=== PATIENT | female | born 1965 | race Caucasian/White ===

== ENCOUNTER 2019-08-05 06:35 | Day surgery (SDC) | payer BC ==
[2019-08-05] MEDS: Lactated Ringers 1,000 ML IV SCH (07:30)
[2019-08-05] MEDS ORDERED: Propofol 200 MG/20 ML SDV ONE ×2 (08:15→08:26)
[2019-08-05] MEDS ORDERED: fentaNYL 100 MCG/2 ML SDV ONE (08:16)
[2019-08-05 09:22] VITALS: BP 112/69; PULSE 65
--- NOTE | 2019-08-05 15:27 | OR ---
DATE OF SURGERY: 08/05/2019. REFERRING PROVIDER: Urvashi Seals PA-C. PRE-OPERATIVE DIAGNOSES: Positive family history of colon cancer in patient's father as well as paternal grandfather. The patient's last colonoscopy was 5 years ago. POST-OPERATIVE DIAGNOSES: 1. Minimal sigmoid diverticulosis. 2. Somewhat tortuous colon, but otherwise normal. 3. Normal distal ileum. PROCEDURE: Colonoscopy. SURGEON: Eugene Rose M.D. ANESTHESIA: Monitored anesthesia care. BOWEL PREP: Good. Faustina is a 53-year-old female who was brought to the endoscopy suite after discussing risks and benefits of the procedure. Informed consent was obtained for conscious sedation and colonoscopy with or without biopsy and/or polypectomy. We also discussed possibility of missed lesions. Pre-procedure exam was unremarkable. IV, oxygen, and monitors were placed. The patient was placed in the left lateral decubitus position. Sedation was administered and a digital rectal exam was performed which was unremarkable. Colonoscope was passed into the rectum and slowly advanced all the way to the cecum. Cecum was viewed and photographed. Ileocecal valve was intubated and distal ileum was normal in appearance. The colonoscope was slowly withdrawn and the mucosa was closed observed in a direct circumferential manner. The ascending colon was unremarkable. The transverse colon was unremarkable. The descending colon was unremarkable. The sigmoid colon did reveal some minimal diverticulosis. Retroflexion was performed and rectal mucosa was unremarkable. Scope was removed. The patient tolerated the procedure well. The patient was monitored until that baseline status. Discharge instructions were reviewed and the patient was discharged in good condition. COMPLICATIONS: None. TOTAL TIME: 18 minutes. ESTIMATED BLOOD LOSS: None. RECOMMENDATIONS/FOLLOW-UP: Would recommend repeat again in 5 years given the positive family history of colon cancer. I would like to kindly thank Urvashi Seals for this referral. DMB: 08/05/2019 09:09:26 MODL: 08/05/2019 15:15:12 /[id number]
== END 2019-08-05 09:45 | disposition home or self-care (01) ==
LOC: VM.SDS 06:35
PROVIDERS: ATTEND Family Medicine
DX: Z12.11 Encounter for screening for malignant neoplasm of colon (principal); K57.30 Diverticulosis of large intestine without perforation or abscess without bleeding; K63.89 Other specified diseases of intestine; K21.9 Gastro-esophageal reflux disease without esophagitis; F41.1 Generalized anxiety disorder; M79.7 Fibromyalgia; Z91.041 Radiographic dye allergy status; Z80.0 Family history of malignant neoplasm of digestive organs; Z79.899 Other long term (current) drug therapy
CPT/HCPCS: J2704; J3010; J7120

== ENCOUNTER 2020-11-27 08:17 | Emergency (ER) | payer BC ==
[2020-11-27] MEDS ORDERED: Sodium Chloride 0.9% 10 ML Syringe FLUSH PRN (08:47)
[2020-11-27] MEDS ORDERED: Sodium Chloride 0.9% 1,000 ML IV ONE (08:49)
[2020-11-27] MEDS ORDERED: Diltiazem 50 MG/10 ML SDV IVPUSH ONE (08:52)
--- NOTE | 2020-11-27 08:59 | EDM.PDOC ---
ED HPI GENERAL MEDICAL PROBLEM - General Stated Complaint: RACING HEART Time Seen by Provider: 11/27/20 08:30 Source of Information: Reports: Patient, Family History Limitations: Reports: No Limitations - History of Present Illness INITIAL COMMENTS - FREE TEXT/NARRATIVE: Pt. presents to ER with complaints of racing heart. Pt. states that the symptoms started at about 0200 this AM. She has had problems with palpitations in the past. She has had 2 Holter studies neither of which showed any supraventricular or ventricular tachycardia. She was evaluated by Dr. Miller at [facility] in 2016 but has not had any follow-up since then. He ordered one of the Holter studies at that time, again which was largely normal. She has never been on a beta block or other medication for rate control. Pt. denies any chest pain. No shortness of breath. No nausea, vomiting, or diarrhea. Denies any lightheadedness. She has not been feeling faint.She states that she has been a bit congested lately. Her only other complaint is that of fatigue today. Pt. has a history of polymyalgia rheumatica and was recently diagnosed with Neftali's disease. Onset: Today Location: Reports: Chest Associated Symptoms: Reports: Malaise. Denies: Confusion, Chest Pain, Cough, Diaphoresis, Fever/Chills, Headaches, Nausea/Vomiting, Rash, Seizure, Shortness of Breath, Syncope, Weakness - Related Data Allergies Allergy/AdvReac Type Severity Reaction Status Date / Time contrast Allergy Hives Uncoded 11/27/20 10:08 Home Meds: Home Meds Cyclobenzaprine [Flexeril] 10 mg PO Q6H PRN 03/31/14 [History] Omeprazole [Prilosec] 20 mg PO QAM 03/31/14 [History] traZODone 50 mg PO BEDTIME 03/31/14 [History] Cholecalciferol (Vitamin D3) [Vitamin D3] 1,000 units PO DAILY 11/04/14 [History] Cyanocobalamin (Vitamin B-12) [B-12] 1,000 mcg PO DAILY 07/15/15 [History] Diclofenac Sodium [Voltaren 1% Gel] 2 gram TOP QID 07/15/15 [History] Hydroxychloroquine Sulfate [Plaquenil] 200 mg PO BID 07/22/19 [History] Lysine 500 mg PO DAILY PRN 07/22/19 [History] [place]-3/DHA/Epa/Fish Oil [Fish Oil 1,000 mg Softgel] 1,000 mg PO BID 07/22/19 [History] PARoxetine [Paxil] 10 mg PO DAILY 07/22/19 [History] Turmeric Root Extract [Turmeric Curcumin] 500 mg PO DAILY 07/22/19 [History] cycloSPORINE [Restasis] 1 each OP BID 07/22/19 [History] estradioL [Estrace] 1 mg PO DAILY 07/22/19 [History] Diclofenac Sodium [Voltaren] 1 tab PO DAILY 08/05/19 [History] Past Medical History Gastrointestinal History: Reports: GERD Genitourinary History: Reports: Other (See Below) Other Genitourinary History: urachal anomaly Musculoskeletal History: Reports: Arthritis, Fibromyalgia Other Musculoskeletal History: polymyalgia rheumatica. posterior tibial tendon dysfunction or RLE. popliteal cyst. left lateral knee pain. hallux rigidus of right foot. chronic right ankle pain Neurological History: Reports: Other (See Below) Other Neuro History: numbness of feet. insomnia Psychiatric History: Reports: Anxiety, Depression - Past Surgical History Female Surgical History: Reports: Breast Biopsy, Hysterectomy, Tubal Ligation Musculoskeletal Surgical History: Reports: Arthroscopic Knee Other Musculoskeletal Surgeries/Procedures:: bilat. knee scopes, right knee surgery. ED ROS GENERAL - Review of Systems Review Of Systems: Comprehensive ROS is negative, except as noted in HPI. ED EXAM, GENERAL - Physical Exam Exam: See Below Exam Limited By: No Limitations General Appearance: Alert, WD/WN, No Apparent Distress Head: Atraumatic, Normocephalic Neck: Normal Inspection, Supple, Full Range of Motion Respiratory/Chest: No Respiratory Distress, Lungs Clear, Normal Breath Sounds, No Accessory Muscle Use, Chest Non-Tender Cardiovascular: Tachycardia, Other (Tachycardia, regular rhythm. No murmur.) GI/Abdominal: Non-Tender, No Distention Extremities: Normal Inspection, No Pedal Edema Neurological: Alert, Oriented, CN II-XII Intact, Normal Cognition, Normal Gait, Normal Reflexes, No Motor/Sensory Deficits Psychiatric: Normal Affect, Normal Mood #1 Interpretation EKG Date: 11/27/20 Rhythm: Other (superventricular tachycardia, rate of 130.) [place]: Normal P-Wave: Absent QRS: Normal ST-T: Normal QT: Normal #2 Interpretation Rhythm: NSR [place]: Normal P-Wave: Present QRS: Normal ST-T: Normal QT: Normal Course - Orders/Labs/Meds Orders: Active Orders 24 hr Category Date Time Status EKG Documentation Completion [RC] STAT Care 11/27/20 08:47 Active COMPREHENSIVE METABOLIC PN,CMP [CHEM] Stat Lab 11/27/20 08:40 Received CORONAVIRUS COVID-19 RAPID [MOLEC] Stat Lab 11/27/20 08:51 Ordered INR,PT,PROTHROMBIN TIME [COAG] Stat Lab 11/27/20 08:40 Received MAGNESIUM [CHEM] Stat Lab 11/27/20 08:40 Received PTT,PARTIAL THROMBOPLSTIN TIME [COAG] Stat Lab 11/27/20 08:40 Received TROPONIN I [CHEM] Stat Lab 11/27/20 08:40 Received TSH ULTRASENSITIVE [CHEM] Stat Lab 11/27/20 08:40 Received Sodium Chloride 0.9% [Normal Saline] 1,000 ml Med 11/27/20 08:49 Active IV ONETIME Sodium Chloride 0.9% [Saline Flush] Med 11/27/20 08:47 Active 10 ml FLUSH ASDIRECTED PRN Peripheral IV Insertion Adult [OM.PC] Routine Oth 11/27/20 08:47 Ordered Medication Orders Sodium Chloride (Normal Saline) 1,000 mls @ 999 mls/hr IV ONETIME ONE Stop: 11/27/20 09:49 Sodium Chloride (Saline Flush) 10 ml FLUSH ASDIRECTED PRN PRN Reason: Keep Vein Open Labs: Laboratory Tests 11/27/20 Range/Units 08:40 WBC 6.6 (4.0-10.0) x10^3/uL RBC 4.52 (4.00-5.50) x10^6/uL Hgb 14.1 (12.0-16.0) g/dL Hct 41.0 (33.0-47.0) % MCV 90.7 (78.0-93.0) fL MCH 31.2 (26.0-32.0) pg MCHC 34.4 (32.0-36.0) g/dL RDW Coeff of Josh 13.0 (10.0-15.0) % Plt Count 271 (130-400) x10^3/uL Neut % (Auto) 61.6 (50.0-80.0) % Lymph % (Auto) 28.5 (25.0-50.0) % [place] % (Auto) 6.5 (2.0-11.0) % Eos % (Auto) 2.9 (0.0-4.0) % Baso % (Auto) 0.5 (0.2-1.2) % Meds: Medications Generic Name Dose Route Start Last Admin Trade Name Freq PRN Reason Stop Dose Admin Sodium Chloride 1,000 mls @ 999 mls/hr 11/27/20 08:49 Normal Saline IV 11/27/20 09:49 ONETIME ONE Sodium Chloride 10 ml 11/27/20 08:47 Saline Flush FLUSH ASDIRECTED PRN Keep Vein Open Discontinued Medications Generic Name Dose Route Start Last Admin Trade Name Freq PRN Reason Stop Dose Admin Diltiazem HCl 20 mg 11/27/20 08:52 Cardizem IVPUSH 11/27/20 08:53 ONETIME ONE - Re-Assessments/Exams Free Text/Narrative Re-Assessment/Exam: 11/27/20 10:20 Pt. was given Cardizem 20mg IV and was given a liter or NS during her stay in ER. She quickly converted to a sinus rhythm without any acute ST or T wave ab normalities. Pt. reported that she was feeling much improved. Denies any chest pain, shortness of breath, lightheadedness, or continued palpitations. Departure - Departure Time of Disposition: 10:19 Disposition: Home, Self-Care 01 Clinical Impression: SVT (supraventricular tachycardia) - Discharge Information - Problem List Review Problem List Initiated/Reviewed/Updated: Yes - My Orders Last 24 Hours: My Active Orders 11/27/20 08:40 COMPREHENSIVE METABOLIC PN,CMP [CHEM] Stat INR,PT,PROTHROMBIN TIME [COAG] Stat MAGNESIUM [CHEM] Stat PTT,PARTIAL THROMBOPLSTIN TIME [COAG] Stat TROPONIN I [CHEM] Stat TSH ULTRASENSITIVE [CHEM] Stat 11/27/20 08:47 EKG Documentation Completion [RC] STAT Sodium Chloride 0.9% [Saline Flush] 10 ml FLUSH ASDIRECTED PRN Peripheral IV Insertion Adult [OM.PC] Routine 11/27/20 08:49 Sodium Chloride 0.9% [Normal Saline] 1,000 ml IV ONETIME 11/27/20 08:51 CORONAVIRUS COVID-19 RAPID [MOLEC] Stat - Assessment/Plan Last 24 Hours: My Active Orders 11/27/20 08:40 COMPREHENSIVE METABOLIC PN,CMP [CHEM] Stat INR,PT,PROTHROMBIN TIME [COAG] Stat MAGNESIUM [CHEM] Stat PTT,PARTIAL THROMBOPLSTIN TIME [COAG] Stat TROPONIN I [CHEM] Stat TSH ULTRASENSITIVE [CHEM] Stat 11/27/20 08:47 EKG Documentation Completion [RC] STAT Sodium Chloride 0.9% [Saline Flush] 10 ml FLUSH ASDIRECTED PRN Peripheral IV Insertion Adult [OM.PC] Routine 11/27/20 08:49 Sodium Chloride 0.9% [Normal Saline] 1,000 ml IV ONETIME 11/27/20 08:51 CORONAVIRUS COVID-19 RAPID [MOLEC] Stat Plan: [facility] was consulted. Discussed case with Dr. Harding. She advised close follow-up with cardiology [facility]. Also will start the patient on Metoprolol succinate 25mg twice daily. I spoke with the patient's PCP, Urvashi Seals PA-C who will put in a cardiology referral for the patient. Pt. was advised to return to ER if she has recurrence of palpitations, racing heart, chest pain, lightheadedness, or shortness of breath.
[2020-11-27 09:39] LABS: PTT,PARTIAL THROMBOPLSTIN TIME 26.2 SEC (25.6-32.8)
[2020-11-27 09:52] LABS: ANION GAP 14.1 mmol/L (5-15); CHLORIDE,CL 106 mmol/L (98-107); SODIUM,NA 143 mmol/L (136-145)
[2020-11-27 10:24] VITALS: BP 117/68; PULSE 65
== END 2020-11-27 10:35 | disposition home or self-care (01) ==
LOC: VM.ED 08:17
DX: I47.1 Supraventricular tachycardia (principal); K21.9 Gastro-esophageal reflux disease without esophagitis; Z91.041 Radiographic dye allergy status; Z79.899 Other long term (current) drug therapy; Z20.822 Contact with and (suspected) exposure to COVID-19
CPT/HCPCS: 36415; 80053; 83735; 84443; 84484; 85025; 85610; 85730; 93005; 93010; 96374; 99284; 99285-25; J3490; J7030; U0002

== ENCOUNTER 2021-01-17 08:11 | Emergency (ER) | payer BC ==
[2021-01-17] MEDS ORDERED: Sodium Chloride 0.9% 10 ML Syringe FLUSH PRN (08:46)
[2021-01-17] MEDS: Lactated Ringers 1,000 ML IV ONE (09:00)
--- NOTE | 2021-01-17 09:03 | EDM.PDOC ---
ED HPI GENERAL MEDICAL PROBLEM - General Chief Complaint: Cardiovascular Problem Stated Complaint: Tacycardia Time Seen by Provider: 01/17/21 08:30 Source of Information: Reports: Patient History Limitations: Reports: No Limitations - History of Present Illness INITIAL COMMENTS - FREE TEXT/NARRATIVE: Patient comes emergency department today from home with complaints of tachycar rodrick. This patient has had a recent visit in the emergency department in November for tachycardia. She was initially started on metoprolol but subsequently changed to Cardizem by her front office spec's recommendation. She had a cardiology appointment referral set up in November and she sees them the middle of next month. SHe was seen in the ED here in November and told she was in SVT and improved with IV medication. She does have a history of fibromyalgia as well as Raynaud's. She states that she is having a current flare of her arthritis the past couple of days. She has had no recent changes in her medications. About 3:00 this morning she was awoken with palpitations. She noted that her heart rate at home was about 150-160. She did not have any chest pain shortness of breath or difficulty breathing with this tachycardia. No weakness dizziness lightheadedness. No syncope. Her heart rate has improved without any intervention and she checked quite frequently most of the morning. She has been well other than her flare of her arthritis she relates. No fever no chills. No cough or congestion. No weakness dizziness lightheadedness. No syncope. No chest pain. No abdominal pain nausea or vomiting. No cough or congestion. No hematuria dysuria or urinary frequency. No black tarry stools. She denies any fatigue or malaise. Treatments HIGH SCHOOL ADMISSIONS REPRESENTATIVE: Reports: Other (see below) Other Treatments HIGH SCHOOL ADMISSIONS REPRESENTATIVE: Breathing techniques to loower heart rate. Generalized Arthritis Pain Score (Numeric/FACES): 3 - Related Data Allergies Allergy/AdvReac Type Severity Reaction Status Date / Time contrast Allergy Severe Hives Uncoded 01/17/21 08:29 Home Meds: Home Meds Cyclobenzaprine [Flexeril] 10 mg PO Q6H PRN 03/31/14 [History] Omeprazole [Prilosec] 20 mg PO QAM 03/31/14 [History] traZODone 50 mg PO BEDTIME 03/31/14 [History] Cholecalciferol (Vitamin D3) [Vitamin D3] 1,000 units PO DAILY 11/04/14 [History] Cyanocobalamin (Vitamin B-12) [B-12] 1,000 mcg PO DAILY 07/15/15 [History] Diclofenac Sodium [Voltaren 1% Gel] 2 gram TOP QID 07/15/15 [History] Hydroxychloroquine Sulfate [Plaquenil] 200 mg PO BID 07/22/19 [History] Lysine 500 mg PO DAILY PRN 07/22/19 [History] [place]-3/DHA/Epa/Fish Oil [Fish Oil 1,000 mg Softgel] 1,000 mg PO BID 07/22/19 [History] PARoxetine [Paxil] 10 mg PO DAILY 07/22/19 [History] Turmeric Root Extract [Turmeric Curcumin] 500 mg PO DAILY 07/22/19 [History] cycloSPORINE [Restasis] 1 each OP BID 07/22/19 [History] estradioL [Estrace] 1 mg PO DAILY 07/22/19 [History] Diclofenac Sodium [Voltaren] 1 tab PO DAILY 08/05/19 [History] Magnesium Oxide 800 mg PO DAILY #30 tab 01/17/21 [Rx] dilTIAZem HCL [Diltiazem 24Hr ER] 180 mg PO DAILY #30 cap.sa.24h 01/17/21 [Rx] Past Medical History Cardiovascular History: Reports: Other (See Below) Other Cardiovascular History: tachycardia Gastrointestinal History: Reports: GERD Genitourinary History: Reports: Other (See Below) Other Genitourinary History: urachal anomaly Musculoskeletal History: Reports: Arthritis, Fibromyalgia Other Musculoskeletal History: polymyalgia rheumatica. posterior tibial tendon dysfunction or RLE. popliteal cyst. left lateral knee pain. hallux rigidus of right foot. chronic right ankle pain Neurological History: Reports: Other (See Below) Other Neuro History: numbness of feet. insomnia Psychiatric History: Reports: Anxiety, Depression - Past Surgical History Female Surgical History: Reports: Breast Biopsy, Hysterectomy, Tubal Ligation Musculoskeletal Surgical History: Reports: Arthroscopic Knee Other Musculoskeletal Surgeries/Procedures:: bilat. knee scopes, right knee surgery. ED ROS GENERAL - Review of Systems Review Of Systems: Comprehensive ROS is negative, except as noted in HPI. ED EXAM, GENERAL - Physical Exam Exam: See Below Exam Limited By: No Limitations General Appearance: Alert, WD/WN, Anxious Eye Exam: Bilateral Eye: EOMI, PERRL Ears: Normal External Exam Nose: Normal Inspection Throat/Mouth: Normal Inspection Head: Atraumatic, Normocephalic Neck: Normal Inspection, Supple, Non-Tender, Full Range of Motion Respiratory/Chest: No Respiratory Distress, Lungs Clear, Normal Breath Sounds, No Accessory Muscle Use, Chest Non-Tender Cardiovascular: Normal Peripheral Pulses, Regular Rate, Rhythm (Heart rate on exam of 106. ), No Murmur, No Rub Peripheral Pulses: 2+: Radial (L), Radial (R), Posterior Tibial (L), Posterior Tibial (R), Dorsalis Pedis (L), Dorsalis Pedis (R) GI/Abdominal: Normal Bowel Sounds, Soft, Non-Tender (Female) Exam: Deferred Rectal (Female) Exam: Deferred Extremities: Normal Inspection, Normal Range of Motion, Non-Tender, No Pedal Edema, Normal Capillary Refill Neurological: Alert, Oriented, CN II-XII Intact, Normal Cognition, Normal Gait, No Motor/Sensory Deficits Psychiatric: Anxious Skin Exam: Warm, Dry, Intact, Normal Color, No Rash Lymphatic: No Adenopathy #1 Interpretation EKG Date: 01/17/21 Time: 08:21 Rhythm: Other (Junctional tachycardia) Rate (Beats/Min): 125 [place]: Normal P-Wave: Absent QRS: Normal ST-T: Depressed (Lateral leads Junctional ST depression.) QT: Normal Comparison: No Change #2 Interpretation EKG Date: 01/17/21 Time: 08:40 Rhythm: Other (Junctional tachycardia) Rate (Beats/Min): 106 [place]: Normal P-Wave: Absent QRS: Normal ST-T: Depressed (Lateral leads.) QT: Normal Comparison: No Change Course - Vital Signs Last Recorded V/S: Last Vital Signs Temp 97.8 F 01/17/21 08:29 Pulse 102 H 01/17/21 09:24 Resp 13 01/17/21 09:24 BP 123/85 01/17/21 09:24 Pulse Ox 100 01/17/21 09:24 - Orders/Labs/Meds Orders: Active Orders 24 hr Category Date Time Status Peripheral IV Insertion Adult [OM.PC] Stat Oth 01/17/21 08:46 Ordered Labs: Laboratory Tests 01/17/21 01/17/21 01/17/21 Range/Units 08:45 08:45 08:45 WBC 7.6 (4.0-10.0) x10^3/uL RBC 4.47 (4.00-5.50) x10^6/uL Hgb 14.0 (12.0-16.0) g/dL Hct 40.4 (33.0-47.0) % MCV 90.4 (78.0-93.0) fL MCH 31.3 (26.0-32.0) pg MCHC 34.7 (32.0-36.0) g/dL RDW Coeff of Josh 12.5 (10.0-15.0) % Plt Count 273 (130-400) x10^3/uL Neut % (Auto) 61.8 (50.0-80.0) % Lymph % (Auto) 27.9 (25.0-50.0) % Taylor % (Auto) 7.5 (2.0-11.0) % Eos % (Auto) 2.4 (0.0-4.0) % Baso % (Auto) 0.4 (0.2-1.2) % PT 10.0 (9.9-12.5) SEC INR 0.9 L (2.0-3.5) APTT 24.3 L (25.6-32.8) SEC Sodium 145 (136-145) mmol/L Potassium 4.0 (3.5-5.1) mmol/L Chloride 106 (98-107) mmol/L Carbon Dioxide 28 (21-32) mmol/L Anion Gap 15.0 (5-15) mmol/L BUN 17 (7-18) mg/dL Creatinine 1.0 (0.55-1.02) mg/dL Est Cr Clr Drug Dosing 58.11 mL/min Estimated GFR (MDRD) 57 Glucose 107 H (74-106) mg/dL Calcium 9.0 (8.5-10.1) mg/dL Corrected Calcium 9.40 (8.5-10.1) mg/dL Magnesium 1.6 L (1.8-2.4) mg/dL Total Bilirubin 0.3 (0.2-1.0) mg/dL AST 20 (15-37) U/L ALT 34 (14-59) U/L Alkaline Phosphatase 110 (46-116) U/L Troponin I High Sens 22 (<=51) ng/L C-Reactive Protein 0.5 (<=0.9) mg/dL Total Protein 7.0 (6.4-8.2) g/dL Albumin 3.5 (3.4-5.0) g/dL Globulin 3.5 Albumin/Globulin Ratio 1.00 TSH, Ultra Sensitive 2.649 (0.358-3.74) uIU/mL Urine Color (YELLOW) Urine Appearance (CLEAR) Urine pH (5.0-8.0) Ur Specific Stewart Urine Protein (NEGATIVE) mg/dL Urine Glucose (UA) (NEGATIVE) mg/dL Urine Ketones (NEGATIVE) mg/dL Urine Occult Blood (NEGATIVE) Urine Nitrite (NEGATIVE) Urine Bilirubin (NEGATIVE) Urine Urobilinogen (0.2) EU/dL Ur Leukocyte Esterase (NEGATIVE) U Hyaline Cast (Auto) Urine RBC (NOT SEEN) /HPF Urine WBC (NOT SEEN) /HPF Ur Squamous Epith Cells (NOT SEEN) /HPF Urine Bacteria (NOT SEEN) /HPF Urine Mucus (NOT SEEN) /LPF Urine Opiates Screen (NEGATIVE) Ur Buprenorphine Scrn (NEGATIVE) Ur Oxycodone Screen (NEGATIVE) Ur EDDP (Meth Metab) (NEGATIVE) Urine Methadone Screen (NEGATIVE) Ur Barbiturates Screen (NEGATIVE) Ur Tricyclics Screen (NEGATIVE) Ur Phencyclidine Scrn (NEGATIVE) Ur Amphetamine Screen (NEGATIVE) U Methamphetamines Scrn (NEGATIVE) Urine MDMA Screen (NEGATIVE) U Benzodiazepines Scrn (NEGATIVE) U Cocaine Metab Screen (NEGATIVE) U Marijuana (THC) Screen (NEGATIVE) 01/17/21 01/17/21 Range/Units 09:04 09:04 WBC (4.0-10.0) x10^3/uL RBC (4.00-5.50) x10^6/uL Hgb (12.0-16.0) g/dL Hct (33.0-47.0) % MCV (78.0-93.0) fL MCH (26.0-32.0) pg MCHC (32.0-36.0) g/dL RDW Coeff of Josh (10.0-15.0) % Plt Count (130-400) x10^3/uL Neut % (Auto) (50.0-80.0) % Lymph % (Auto) (25.0-50.0) % Taylor % (Auto) (2.0-11.0) % Eos % (Auto) (0.0-4.0) % Baso % (Auto) (0.2-1.2) % PT (9.9-12.5) SEC INR (2.0-3.5) APTT (25.6-32.8) SEC Sodium (136-145) mmol/L Potassium (3.5-5.1) mmol/L Chloride (98-107) mmol/L Carbon Dioxide (21-32) mmol/L Anion Gap (5-15) mmol/L BUN (7-18) mg/dL Creatinine (0.55-1.02) mg/dL Est Cr Clr Drug Dosing mL/min Estimated GFR (MDRD) Glucose (74-106) mg/dL Calcium (8.5-10.1) mg/dL Corrected Calcium (8.5-10.1) mg/dL Magnesium (1.8-2.4) mg/dL Total Bilirubin (0.2-1.0) mg/dL AST (15-37) U/L ALT (14-59) U/L Alkaline Phosphatase (46-116) U/L Troponin I High Sens (<=51) ng/L C-Reactive Protein (<=0.9) mg/dL Total Protein (6.4-8.2) g/dL Albumin (3.4-5.0) g/dL Globulin Albumin/Globulin Ratio TSH, Ultra Sensitive (0.358-3.74) uIU/mL Urine Color Yellow (YELLOW) Urine Appearance Clear (CLEAR) Urine pH 8.5 H (5.0-8.0) Ur Specific Stewart 1.025 Urine Protein 30 H (NEGATIVE) mg/dL Urine Glucose (UA) Negative (NEGATIVE) mg/dL Urine Ketones Negative (NEGATIVE) mg/dL Urine Occult Blood Negative (NEGATIVE) Urine Nitrite Negative (NEGATIVE) Urine Bilirubin Negative (NEGATIVE) Urine Urobilinogen 0.2 (0.2) EU/dL Ur Leukocyte Esterase Negative (NEGATIVE) U Hyaline Cast (Auto) Few Urine RBC 0-5 (NOT SEEN) /HPF Urine WBC 0-5 (NOT SEEN) /HPF Ur Squamous Epith Cells Few H (NOT SEEN) /HPF Urine Bacteria Few H (NOT SEEN) /HPF Urine Mucus Few H (NOT SEEN) /LPF Urine Opiates Screen Negative (NEGATIVE) Ur Buprenorphine Scrn Negative (NEGATIVE) Ur Oxycodone Screen Negative (NEGATIVE) Ur EDDP (Meth Metab) Negative (NEGATIVE) Urine Methadone Screen Negative (NEGATIVE) Ur Barbiturates Screen Negative (NEGATIVE) Ur Tricyclics Screen Positive H (NEGATIVE) Ur Phencyclidine Scrn Negative (NEGATIVE) Ur Amphetamine Screen Negative (NEGATIVE) U Methamphetamines Scrn Negative (NEGATIVE) Urine MDMA Screen Negative (NEGATIVE) U Benzodiazepines Scrn Negative (NEGATIVE) U Cocaine Metab Screen Negative (NEGATIVE) U Marijuana (THC) Screen Negative (NEGATIVE) Meds: Medications Discontinued Medications Generic Name Dose Route Start Last Admin Trade Name Freq PRN Reason Stop Dose Admin Lactated Ringer's 1,000 mls @ 999 mls/hr 01/17/21 08:56 01/17/21 09:00 Ringers, Lactated IV 01/17/21 09:56 999 mls/hr ONETIME ONE Administration Magnesium Oxide 400 mg 01/17/21 09:48 01/17/21 09:57 Magnesium Oxide 400 Mg Tab PO 01/17/21 09:49 400 mg ONETIME ONE Administration Sodium Chloride 10 ml 01/17/21 08:46 Sodium Chloride 0.9% 10 Ml Syringe FLUSH ASDIRECTED PRN Keep Vein Open - Re-Assessments/Exams Free Text/Narrative Re-Assessment/Exam: 01/17/21 09:05 IV established labs drawn. EKG Junctional tachycardia with lateral depression minimally. I also reviewed her note from November where I reviewed her EKG. There was no evidence of SVT in November. She had a junctional tachycardia at that time as well. Laboratory evaluation is rather unremarkable with a normal CBC, line CMP glucose 107 otherwise normal. Magnesium 1.6 and she is on supplemental magnesium at home. C-reactive protein is negative at 0.5. Troponin negative at 22 and her symptoms have been going on for many hours. TSH 2.649. Urine drug screen positive for tricyclics otherwise negative. Urinalysis is unremarkable other than some protein and it appears to be somewhat of a dirty sample with epithelial cells. Other than the palpitation sensation this patient is really asymptomatic. Her heart rate when she is at rest is about 106. She is quite nervous and anxious about her heart rate being elevated. Reviewing her documentation from home it appears that she is checking her blood pressure and heart rate multiple times an hour and has been doing this for weeks. I did call and spoke with Dr. Gutiérrez. I relayed my plan of increasing her Diltiazem to 180mg ER daily and keep her cardiology follow up. She agreed. I discussed the plan of care with the patient. I discussed concerning symptoms of tachycardia such as syncope, CP SOB weaksness etc but not limited to these symptoms that require evaluation urgently. She was comfortable with this plan and her questions are answered. Departure - Departure Time of Disposition: 10:02 Disposition: Home, Self-Care 01 Clinical Impression: Junctional tachycardia, Palpitations Prescriptions: dilTIAZem HCL [Diltiazem 24Hr ER] 180 mg PO DAILY #30 cap.sa.24h Magnesium Oxide 800 mg PO DAILY #30 tab Instructions: Palpitations, [id number] Referrals: Urvashi Seals PA-C [Primary Care Provider] - Forms: ED Department Discharge Additional Instructions: Continue your previous medications. Increase your magnesium to 800mg daily. Rx sent to [facility]. Increase your Cardizem to 180mg ER daily. Rx sent to [facility] pharmacy. Return to the ED if new or worsening symptoms. Follow up with Urvashi Garner PA-C for recheck in about a week and recheck magnesium and also consider sleep study testing. Sepsis Event Note (ED) - Evaluation Sepsis Screening Result: No Definite Risk - My Orders Last 24 Hours: My Active Orders 01/17/21 08:46 Peripheral IV Insertion Adult [OM.PC] Stat - Assessment/Plan Last 24 Hours: My Active Orders 01/17/21 08:46 Peripheral IV Insertion Adult [OM.PC] Stat
[2021-01-17 09:19] LABS: BARBITURATE SCREEN,URINE NEGATIVE (NEGATIVE); BENZODIAZEPINES SCREEN,URINE NEGATIVE (NEGATIVE); EDDP,URINE SCREEN NEGATIVE (NEGATIVE); METHAMPHETAMINE SCREEN, URINE NEGATIVE (NEGATIVE); TCA SCREEN,URINE POSITIVE (NEGATIVE); THC SCREEN,URINE 50 NG/ML NEGATIVE (NEGATIVE)
[2021-01-17 09:23] LABS: PTT,PARTIAL THROMBOPLSTIN TIME 24.3 SEC (25.6-32.8)
[2021-01-17 09:47] VITALS: BP 123/85; PULSE 102
[2021-01-17] MEDS: Magnesium Oxide 400 MG Tab PO ONE (09:57)
== END 2021-01-17 10:15 | disposition home or self-care (01) ==
LOC: VM.ED 08:11 → SUPCPDRO 08:11 → VM.ED 10:15
DX: I47.1 Supraventricular tachycardia (principal); K21.9 Gastro-esophageal reflux disease without esophagitis; Z91.041 Radiographic dye allergy status; Z79.899 Other long term (current) drug therapy
CPT/HCPCS: 80053; 80305-QW; 81001; 83735; 84443; 84484; 85025; 85610; 85730; 86140; 93005; 93010; 99284; 99285-25; A9270-GY; J7120

== ENCOUNTER 2024-10-07 07:32 | Day surgery (SDC) | payer BC ==
[~2024-10-07 07:32] MED LIST: Lactated Ringers 1,000 ML IV SCH
[2024-10-07] MEDS: Lactated Ringers 1,000 ML IV SCH (07:55)
[2024-10-07] MEDS ORDERED: Propofol 200 MG/20 ML SDV ONE ×2 (08:21→09:36)
[2024-10-07] MEDS ORDERED: fentaNYL 100 MCG/2 ML SDV ONE (08:21)
[2024-10-07 12:24] VITALS: BP 151/54
[2024-10-07 13:04] VITALS: PULSE 59
== END 2024-10-07 13:08 | disposition home or self-care (01) ==
LOC: VM.SDS 07:32
PROVIDERS: ATTEND Family Medicine
DX: K57.30 Diverticulosis of large intestine without perforation or abscess without bleeding (principal); K64.9 Unspecified hemorrhoids; K59.09 Other constipation; K21.9 Gastro-esophageal reflux disease without esophagitis; F41.9 Anxiety disorder, unspecified; Z79.899 Other long term (current) drug therapy; Z80.0 Family history of malignant neoplasm of digestive organs
CPT/HCPCS: 00811; 45380; 74019; J2704; J3010; J7120